=== PATIENT | female | born 1985 | race Caucasian/White ===

== ENCOUNTER 2018-11-28 09:59 | Emergency (ER) | payer BC, OTHER ==
--- NOTE | 2018-11-28 10:32 | ER Document Report ---
ED Medical Screen (RME) - General Chief Complaint: Vaginal Bleeding Stated Complaint: VAGINAL BLEEDING Time Seen by Provider: 11/28/18 10:30 Mode of Arrival: Ambulatory Information source: Patient Notes: 32-year-old female presents to ED for complaint of vaginal bleeding and cramping during . She states she is 9 weeks 6 days 4 para 2 with a blood type of B-. She states she has not had RhoGam this . Patient is alert oriented respirations regular and unlabored speaking with full sentences walks with even steady gait. I have greeted and performed a rapid initial assessment of this patient. A comprehensive ED assessment and evaluation of the patient, analysis of test results and completion of medical decision making process will be conducted by a n additional ED providers. Dictation of this chart was performed using voice recognition software; therefore, there may be some unintended grammatical errors. TRAVEL OUTSIDE OF THE [place] IN LAST 30 DAYS: No - Related Data Allergies/Adverse Reactions: No Known Allergies Allergy (Unverified 11/28/18 10:00) Physical Exam - Vital signs Vitals: Temp Pulse Resp BP Pulse Ox 98.2 F 79 16 135/77 H 100 11/28/18 10:06 11/28/18 10:06 11/28/18 10:06 11/28/18 10:06 11/28/18 10:06 Course - Vital Signs Vital signs: Temp Pulse Resp BP Pulse Ox 98.2 F 79 16 135/77 H 100 11/28/18 10:06 11/28/18 10:06 11/28/18 10:06 11/28/18 10:06 11/28/18 10:06
[2018-11-28 11:08] LABS: ABSOLUTE LYMPHOCYTES (AUTO) 1.4 10^3/uL (0.5-4.7); ABSOLUTE MONOCYTES (AUTO) 0.4 10^3/uL (0.1-1.4); BASOPHILS % (AUTO) 0.4 % (0-2); EOSINOPHILS % (AUTO) 0.5 % (0-6); HEMATOCRIT 37.4 % (36.0-47.0); HEMOGLOBIN 12.9 g/dL (12.0-15.5); LYMPHOCYTES % (AUTO) 20.9 % (13-45); MEAN CORPUSCULAR HEMOGLOBIN 27.8 pg (27.0-33.4); MEAN CORPUSCULAR HGB CONC 34.5 g/dL (32.0-36.0); MEAN CORPUSCULAR VOLUME 81 fl (80-97); MONOCYTES % (AUTO) 5.9 % (3-13); PLATELET COUNT 202 10^3/uL (150-450); RED BLOOD COUNT 4.64 10^6/uL (3.72-5.28); RED CELL DISTRIBUTION WIDTH 12.8 % (11.5-14.0); SEGMENTED NEUTROPHILS % (AUTO) 72.3 % (42-78); TOTAL CELLS COUNTED % (AUTO) 100 %; WHITE BLOOD COUNT 6.9 10^3/uL (4.0-10.5)
[2018-11-28 11:20] LABS: APPEARANCE,URINE CLOUDY; BILIRUBIN,URINE NEGATIVE (NEGATIVE); COLOR,URINE YELLOW; GLUCOSE, URINE NEGATIVE (NEGATIVE); KETONES,URINE NEGATIVE (NEGATIVE); LEUKOCYTE ESTERASE,URINE MODERATE (NEGATIVE); NITRITE,URINE NEGATIVE (NEGATIVE); PROTEIN,URINE NEGATIVE (NEGATIVE); URINE SPECIFIC GRAVITY 1.015; UROBILINOGEN,URINE NEGATIVE mg/dL (<2.0)
[2018-11-28 11:28] LABS: ALANINE AMINOTRANSFERASE 23 U/L (9-52); ALBUMIN 4.5 g/dL (3.5-5.0); ALKALINE PHOSPHATASE 31 U/L (38-126); ANION GAP 8 (5-19); ASPARTATE AMINO TRANSFERASE 19 U/L (14-36); BILIRUBIN,DIRECT 0.2 mg/dL (0.0-0.4); BILIRUBIN,TOTAL 0.3 mg/dL (0.2-1.3); BLOOD UREA NITROGEN 13 mg/dL (7-20); CALCIUM 9.6 mg/dL (8.4-10.2); CARBON DIOXIDE 26 mmol/L (22-30); CHLORIDE 102 mmol/L (98-107); GLUCOSE 73 mg/dL (75-110); POTASSIUM 4.1 mmol/L (3.6-5.0); TOTAL PROTEIN 7.2 g/dL (6.3-8.2)
--- NOTE | 2018-11-28 11:46 | ER Document Report ---
ED General - General Chief Complaint: Vaginal Bleeding Stated Complaint: VAGINAL BLEEDING Time Seen by Provider: 11/28/18 10:30 Mode of Arrival: Ambulatory Notes: 33-year-old G4, P2 9 weeks 6-day female LMP 09/20/2018 presents to the emergency department with chief complaint of cramping and bleeding since 1:00 this morning. She woke up to go to the bathroom and noticed that she has some spotting then went back to bed. About 6 AM she noticed that there was some brown discharge. At 8 AM she noticed spotting. She also has pelvic cramping. She denies fevers or chills, she denies shortness of breath or chest pain, denies nausea or vomiting, denies upper abdominal pain, denies any urinary symptoms. Her blood type is B-. TRAVEL OUTSIDE OF THE [place] IN LAST 30 DAYS: No - Related Data Allergies/Adverse Reactions: No Known Allergies Allergy (Unverified 11/28/18 10:41) Past Medical History - General Information source: Patient Last Menstrual Period: 09/20/2018 - Social History Smoking Status: Never Smoker Chew tobacco use (# tins/day): No Frequency of alcohol use: None Drug Abuse: None Family History: None Patient has suicidal ideation: No Patient has homicidal ideation: No Renal/ Medical History: Denies: Hx Peritoneal Dialysis Review of Systems - Review of Systems Constitutional: See HPI EENT: No symptoms reported Cardiovascular: See HPI Respiratory: See HPI Gastrointestinal: See HPI Genitourinary: See HPI Female Genitourinary: See HPI Musculoskeletal: No symptoms reported Skin: No symptoms reported Hematologic/Lymphatic: No symptoms reported Neurological/Psychological: No symptoms reported Physical Exam - Vital signs Vitals: Temp Pulse Resp BP Pulse Ox 98.2 F 79 16 135/77 H 100 11/28/18 10:06 11/28/18 10:06 11/28/18 10:06 11/28/18 10:06 11/28/18 10:06 - Notes Notes: PHYSICAL EXAMINATION: Reviewed vital signs and charting by RN GENERAL: Alert, interacts well. No acute distress. HEAD: Normocephalic, atraumatic. EYES: Pupils equal and round. Extraocular movements intact. ENT: Oral mucosa moist, tongue midline. NECK: Full range of motion. Trachea midline. LUNGS: Clear to auscultation bilaterally, no wheezes, rales, or rhonchi. No respiratory distress. HEART: Regular rate and rhythm. No murmur ABDOMEN: soft, mild tenderness to palpation left lower quadrant. No distention. Bowel sounds present EXTREMITIES: Moves all 4 extremities spontaneously. No edema, No cyanosis. PSYCH: Normal affect, normal mood. SKIN: Warm, dry, normal turgor. No rashes or lesions noted. Course - Re-evaluation Re-evalutation: 11/28/18 11:45 Overall well-appearing. Afebrile, urinalysis consistent with a UTI. Transvaginal ultrasound pending. We will give patient Keflex 500 mg here in the emergency department. 11/28/18 14:14 Transvaginal ultrasound showed a live intrauterine with a subchorionic bleed. I have explained to patient the risks associated with a subchorionic bleed. I have given her strict return precautions and she is stable for discharge. Vital signs within normal limits. - Vital Signs Vital signs: Temp Pulse Resp BP Pulse Ox 98.2 F 79 16 135/77 H 100 11/28/18 10:06 11/28/18 10:06 11/28/18 10:06 11/28/18 10:06 11/28/18 10:06 - Laboratory Result Diagrams: 11/28/18 10:54 11/28/18 10:54 Laboratory results interpreted by me: 11/28/18 11/28/18 10:54 10:54 Sodium 136.0 L Glucose 73 L Alkaline Phosphatase 31 L Beta HCG, Quant 147277.00 H Urine Blood LARGE H Ur Leukocyte Esterase MODERATE H Discharge - Discharge Clinical Impression: Bleeding in early Urinary tract infection Qualifiers: Urinary tract infection type: acute cystitis Hematuria presence: with hematuria Qualified Code(s): N30.01 - Acute cystitis with hematuria Condition: Good Disposition: HOME, SELF-CARE Instructions: Urinary Tract Infection ([facility]) Additional Instructions: Your ultrasound today shows a living intrauterine . Please follow closely with your primary care PARAPROFESSIONAL AIDE TEACHER. Please return if you develop severe abdominal pain, bleeding that goes through more than 2 pads for more than 2 hours, pass out, or have any other symptoms that are concerning to you. Please follow-up closely with your OBGYN regarding todays visit. Your urine shows findings consistent with a urinary tract infection. Please take all the antibiotics as directed even if your symptoms have improved. Please follow-up with your primary care physician as needed. Return to emergency room if you develop fever >101F, persistent vomiting, become lethargic , have severe pain in your sides, or any other symptoms that are concerning to you.
--- NOTE | 2018-11-28 14:05 | RADIOLOGY REPORT (SQ) ---
EXAM DESCRIPTION: U/S OB TRANSVAG W/DOPPLER COMPLETED DATE/TIME: 11/28/2018 1:56 pm REASON FOR STUDY: preg 9 weeks 6 days vaginal bleeding cramping COMPARISON: None. TECHNIQUE: Transvaginal static and realtime grayscale images acquired of the pelvis. Additional madeline cted spectral and color Doppler images recorded. All images stored on PACs. [id number] CLINICAL DATES: LMP 09/20/2018. 9 weeks 6 days. LIMITATIONS: None. FINDINGS: FETUS: Single Living intrauterine . ULTRASOUND EGA: 9 weeks 5 days ULTRASOUND ABBY: 06/28/2019 EFW: Not applicable less than 20 weeks. CRL: 2.9 cm. FHR: 162 beats per minute. SURVEY: No visualized anomalies. AMNIOTIC FLUID: Adequate amount. PLACENTA: Not yet developed due to early gestation. SUBCHORIONIC BLEED: Yes SIZE OF BLEED: 2 x 1.7 x 0.4 cm. 0.9 x 1.1 x 0.8 cm. UTERUS: No masses. No anomalies. CERVICAL LENGTH: 3 cm. Closed. RIGHT ADNEXA: Normal ovary with normal vascular flow. 2.7 x 2.2 x 1.6 cm. No adnexal free fluid. No adnexal masses. LEFT ADNEXA: Normal ovary with normal vascular flow. 4.2 x 2.6 x 2.4 cm. No adnexal free fluid. No adnexal masses. FREE FLUID: None. OTHER: No other significant finding. IMPRESSION: LIVING INTRAUTERINE . EGA 9 weeks 5 days. Trimester of : First - 0 to 13 weeks. TECHNICAL DOCUMENTATION: JOB ID: [id number]- All Rights Reserved rev-10/12 Reading location - IP/workstation name: [email or web address]
[2018-11-28 14:44] VITALS: BP 104/69
== END 2018-11-28 14:45 | disposition home or self-care (01) ==
LOC: ER 09:59
DX: O20.9 Hemorrhage in early pregnancy, unspecified (principal); O23.11 Infections of bladder in pregnancy, first trimester; Z3A.09 9 weeks gestation of pregnancy
CPT/HCPCS: 99284; 86900; 86901; 36415; 86850; 84702; 85025; 80053; 81001; 76817; 93976; J2790

== ENCOUNTER 2019-06-28 04:03 | Inpatient (IN) | payer BC, OTHER ==
[2019-06-28] MEDS ORDERED: OXYTOCIN/NORMAL SALINE 0 UNIT/0 ML RTUINJ ONE (04:20)
[2019-06-28] MEDS ORDERED: MISOPROSTOL 0.2 MG TABLET ONE ×2 (04:20→04:22)
[2019-06-28] MEDS ORDERED: OXYTOCIN 10 UNIT/ML VIAL ONE ×2 (04:20→04:22)
[2019-06-28] MEDS ORDERED: LIDOCAINE 1% INJ-PF (10 MG/ML) 30 ML SDV ONE ×2 (04:20→04:22)
[2019-06-28] MEDS ORDERED: OXYTOCIN/NORMAL SALINE 20 UNIT/1,000 ML RTUINJ ONE (04:22)
[2019-06-28 05:24] LABS: ABSOLUTE LYMPHOCYTES (AUTO) 1.8 10^3/uL (0.5-4.7); ABSOLUTE MONOCYTES (AUTO) 0.8 10^3/uL (0.1-1.4); ABSOLUTE NEUT (AUTO) 8.5 10^3/uL (1.7-8.2); BASOPHILS % (AUTO) 0.2 % (0-2); EOSINOPHILS % (AUTO) 0.4 % (0-6); HEMATOCRIT 37.9 % (36.0-47.0); MEAN CORPUSCULAR HEMOGLOBIN 29.4 pg (27.0-33.4); MEAN CORPUSCULAR HGB CONC 34.3 g/dL (32.0-36.0); MEAN CORPUSCULAR VOLUME 86 fl (80-97); MONOCYTES % (AUTO) 6.9 % (3-13); PLATELET COUNT 179 10^3/uL (150-450); RED BLOOD COUNT 4.43 10^6/uL (3.72-5.28); RED CELL DISTRIBUTION WIDTH 14.2 % (11.5-14.0); SEGMENTED NEUTROPHILS % (AUTO) 76.5 % (42-78); TOTAL CELLS COUNTED % (AUTO) 100 %; WHITE BLOOD COUNT 11.1 10^3/uL (4.0-10.5)
[2019-06-28] MEDS: RINGERS SOLUTION,LACTATED 1,000 ML IV PRN ×2 (05:40→05:41)
[2019-06-28] MEDS ORDERED: PHENYLEPHRINE HCL INJ/PF 10 MG/1 ML SDV ONE (05:42)
[2019-06-28] MEDS ORDERED: BUPIVACAINE HCL 0.25 % INJ/PF (2.5 MG/1 ML) 30 ML VIAL ONE (05:43)
[2019-06-28] MEDS ORDERED: FENTANYL/BUPIVACAINE/NS/PF 300 MCG/150 ML RTUINJ EPI ONE (05:43)
[2019-06-28] MEDS ORDERED: EPHEDRINE SULFATE INJ 50 MG/1 ML AMPULE ONE (05:43)
[2019-06-28] MEDS ORDERED: FENTANYL CITRATE INJ/PF 100 MCG/2 ML AMPUL ONE (05:43)
--- NOTE | 2019-06-28 06:23 | Admission Physical ---
Datetime Report Generated by CPN: 06/28/2019 06:22 CURRENT ADMISSION Chief Complaint: Uterine Contractions Indication for Induction: Not Applicable Admit Impression : Term, Intrauterine ; Active Labor Admit Plan: Admit to Unit; Initiate Labor Protocol ALLERGIES Medication Allergies: No Medication Allergies: No Known Allergies (06/28/2019) Latex: Latex Allergies OBSTETRICAL HISTORY EDC: 06/27/2019 00:00 : 4 Para: 2 Term: 2 : 0 SAB: 1 IAB: 0 Ectopic: 0 Livin Cesareans: 0 VBACs: 0 Multiple Births: 0 Gestational Diabetes: No Rh Sensitization: No Incompetent Cervix: No STACI: No Infertility: No ART Treatment: No Uterine Anomaly: No IUGR: No Hx Previous C/S: No Macrosomia: No Hx Loss/Stillborn: No PIH: No Hx : No Placenta Previa/Abruption: No Depression/PP Depression: No PTL/PROM: No Post Hemorrhage: No Current Procedures: Ultrasound; NST Obstetrical History Comments: G1: SAB less than 6 weeks G2: 06/03/2014 40 + weeks 9 lbs 1 oz M G3: 12.23.2015 40 weeks M 8 lbs 2 oz G4: current SEE RECORDS Alcohol: No Marijuana : No Cocaine: No Other Illicit Drugs: No Cigarettes: Never Smoker. [id number] MEDICAL HISTORY Diabetes: No Blood Transfusion: No Pulmonary Disease (Asthma, TB): No Breast Disease: No Hypertension: No Credit Risk Modeler Surgery: No Heart Disease: No Hosp/Surgery: Yes Autoimmune Disorder: No Anesthetic Complications: No Kidney Disease: No Abnormal Pap Smear: No Neuro/Epilepsy: No Psychiatric Disorders: No Other Medical Diseases: No Hepatitis/Liver Disease: No Significant Family History: No Varicosities/Phlebitis: No Trauma/Violence : No Thyroid Dysfunction: No Medical History Comments: childbirth x 2 INFECTIOUS HISTORY Gonorrhea: No Genital Herpes: Yes Chlamydia: No Tuberculosis: No Syphilis: No Hepatitis: No HIV/AIDS Exposure: No Rash or Viral Illness: No HPV: No Infectious History Comments: HSV- valtrex PHYSICAL EXAM General: Normal HEENT: Normal Neurologic: Normal Thyroid: Normal Heart: Normal Lungs: Normal Breast: Deferred Back: Normal Abdomen: Normal Genitourinary Exam: Normal Extremities: Normal DTRs: Normal Pelvic Type: Adequate Vital Signs: Reviewed VAGINAL EXAM Dilatation: 8 Effacement: 90 Station: 1 MEMBRANES Pooling: Negative Membranes: Intact FETUS A EGA: 40.1 Monitoring: External US FHR- Baseline: 120 Variability: Moderate 6-25bpm Accelerations: 15X15 FHR Category: Category I Presentation: Vertex Admit Comment: admit for labor PLANS FOR LABOR AND DELIVERY Labor and Delivery: None Pain Management: Epidural Feeding Preference: Breast Benefit of Breast Feed Discussed: Yes Circumcision: N/A INFORMED CONSENT Signature: with User ID: [email or web address]
[2019-06-28 06:44] LABS: APPEARANCE,URINE SLIGHTLY-CLOUDY; BILIRUBIN,URINE NEGATIVE (NEGATIVE); COLOR,URINE YELLOW; GLUCOSE, URINE NEGATIVE (NEGATIVE); KETONES,URINE NEGATIVE (NEGATIVE); LEUKOCYTE ESTERASE,URINE MODERATE (NEGATIVE); NITRITE,URINE NEGATIVE (NEGATIVE); PROTEIN,URINE NEGATIVE (NEGATIVE); URINE SPECIFIC GRAVITY 1.015; UROBILINOGEN,URINE NEGATIVE mg/dL (<2.0)
[2019-06-28 07:09] LABS: URINE AMPHETAMINES SCREEN NEGATIVE; URINE BARBITURATES SCREEN NEGATIVE; URINE BENZODIAZEPINES SCREEN NEGATIVE; URINE COCAINE SCREEN NEGATIVE; URINE MARIJUANA (THC) SCREEN NEGATIVE; URINE METHADONE SCREEN NEGATIVE; URINE PHENCYCLIDINE SCREEN NEGATIVE
--- NOTE | 2019-06-28 07:44 | Warning Signs in Babies ---
VOD Warning Signs Datetime Report Generated by [facility]: 06/28/2019 07:43 VOD#608 -Warning Signs in Babies: Viewed with Parent(s)/Family (06/28/2019 07:42:Kinjal Liu RN)
[2019-06-28] MEDS ORDERED: MEASLES,MUMPS&RUBELLA VACC/PF 0.5 ML VIAL SUBCUT PRN (11:44)
[2019-06-28] MEDS ORDERED: BENZOCAINE/MENTHOL AEROSOL SPRAY 56 ML TOP PRN (11:44)
[2019-06-28] MEDS ORDERED: DIBUCAINE 1% OINTMENT 28 GM TP PRN (11:44)
[2019-06-28] MEDS ORDERED: ACETAMINOPHEN WITH CODEINE #3 TABLET PO PRN ×2 (11:44)
[2019-06-28] MEDS ORDERED: DIPH/PERTUSS(ACELL)/TETANUS VAC/PF 0.5 ML SYR (>=10YO) IM PRN (11:44)
[2019-06-28] MEDS ORDERED: ZOLPIDEM TARTRATE 5 MG TABLET PO PRN (11:44)
[2019-06-28] MEDS ORDERED: OXYTOCIN/NORMAL SALINE 20 UNIT/1,000 ML RTUINJ IV PRN (11:44)
[2019-06-28] MEDS: IBUPROFEN 800 MG TABLET PO SCH ×2 (14:06→20:59)
--- NOTE | 2019-06-28 14:13 | Delivery Summary ---
Del Sum A-C Datetime Report Generated by CPN: 06/28/2019 14:12 DELIVERY PERSONNEL DELIVERY PERSONNEL: [id number] Delivery Doctor:: Lexie Golden MD Labor and Delivery Nurse:: Braeden Frederick RNelectronics technician apprentice Nurse:: Kinjal Liu RN Finisher Hot Strip/TEA ROOM MANAGER: Debbie Von Yeaddiss, DAM ATTENDANT Finisher Hot Strip/TEA ROOM MANAGER: Nay Navarro, DAM ATTENDANT MATERNAL INFORMATION Delivery Anesthesia: Epidural Medications After Delivery: Pitocin Bolus-Please Comment Meds After Delivery Comment: pitocin 20 units in NS 1000 ml bolus Estimated Blood Loss (ml): 300 Delivery QBL: 100 Maternal Complications: None Complication Details: none Provider Comments: Called to patients room as she was completely dilated and +2 station. PUshed through one contraction and delivered viable female infant. After delivery of the head, the shoulders and rest of body followed easily. Cord clamping delayed 30 seconds as infant was vigorous. After doubly clamping cord, placed skin to skin with Mother. Both stable condition. LABOR SUMMARY EDC: 06/27/2019 00:00 No. Babies in Womb: 1 Attempted: No Labor Anesthesia: Epidural LABOR INFORMATION Reason for Induction: Not Applicable Onset of Labor: 06/28/2019 01:00 Complete Dilatation: 06/28/2019 11:19 Other Ripening Agents: none Oxytocin: N/A Group B Beta Strep: negative Antibiotics # of Doses: 0 Steroids Given: None Reason Steroids Not Administered: Not Applicable MEMBRANES Membranes Rupture Method: Spontaneous Rupture of Membranes: 06/28/2019 08:48 Length of Rupture (hr): 2.67 Amniotic Fluid Color: Clear Amniotic Fluid Amount: Scant Amniotic Fluid Odor: None STAGES OF LABOR Stage 1 hr: 10 Stage 1 min: 19 Stage 2 hr: 0 Stage 2 min: 9 Stage 3 hr: 0 Stage 3 min: 4 Total Time in Labor hr: 10 Total Time in Labor min: 32 VAGINAL DELIVERY Episiotomy: None Laceration #1: Perineal Laceration Extension #1: Second Degree Laceration Repair: Yes Laceration Repair Note: Repaired in layered closure with 2-0 chromic Sponge Count Correct: Yes Sharps Count Correct: Yes CSECTION DELIVERY Primary Indication: N/A Secondary Indication: N/A CSection Incidence: N/A Labor: N/A Elective: N/A CSection Incision: N/A BABY A INFORMATION Infant Delivery Date/Time: 06/28/2019 11:28 Method of Delivery: Vaginal Born in Route : No : N/A Forceps: N/A Vacuum Extraction: N/A Shoulder Dystocia : No PRESENTATION/POSITION BABY A Presentation: Cephalic Cephalic Presentation: Vertex Vertex Position: Right Occipital Anterior Breech Presentation: N/A PLACENTA INFORMATION BABY A Placenta Delivery Time : 06/28/2019 11:32 Placenta Method of Delivery: Spontaneous Placenta Status: Delivered SCORES BABY A Heart Rate 1 min: >100 bpm Resp Effort 1 min: Good Cry Reflex Irritability 1 min: Cough or Sneeze or Pulls Away Muscle Tone 1 min: Active Motion Color 1 min: Body [place], Extremities Blue Resuscitation Effort 1 min: Tactile Stimulation SCORE 1 MIN: 9 Heart Rate 5 min: >100 bpm Resp Effort 5 min: Good Cry Reflex Irritability 5 min: Cough or Sneeze or Pulls Away Muscle Tone 5 min: Active Motion Color 5 min: Body [place], Extremities Blue SCORE 5 MIN: 9 INFORMATION BABY A Gestational Age at Delivery: 40.1 Gestational Status: Full Term- 39- 40.6 Weeks Outcome : Liveborn Infant Condition : Stable Sex: Female IDENTIFICATION BABY A Infant Verification Date/Time: 06/28/2019 11:50 ID Band Number: [id number] Mother's Name Verified: Yes RN Verifying : TMartin RN, MMobley RN WEIGHT/LENGTH BABY A Infant Birthweight (gm): 4000 Weight (lb): 8 Infant Weight (oz): 13 Infant Length (in): 20.25 Infant Length (cm): 51.44 CORD INFORMATION BABY A No. Cord Vessels: 3 Nuchal Cord : N/A Cord Blood Taken: Yes-For Eval (Mom's Blood Type - or O+) Suction: Mouth ASSESSMENT BABY A Infant Respirations: Appears Normal Skin to Skin: Yes Skin to Skin Time (min): 60 Transferred To: [facility] BABY B INFORMATION : N/A SIGNATURES Signature: with User ID: Maria Isabel : with User ID: Maria Isabel
[2019-06-28] MEDS: DOCUSATE SODIUM 100 MG CAPSULE PO SCH (17:32)
[2019-06-28] MEDS: FERROUS SULFATE 325 MG TABLET PO SCH (17:32)
[2019-06-29] MEDS: IBUPROFEN 800 MG TABLET PO SCH ×2 (05:41→13:05)
[2019-06-29 07:36] LABS: HEMATOCRIT 34.7 % (36.0-47.0); HEMOGLOBIN 11.9 g/dL (12.0-15.5); MEAN CORPUSCULAR HEMOGLOBIN 29.3 pg (27.0-33.4); MEAN CORPUSCULAR HGB CONC 34.2 g/dL (32.0-36.0); MEAN CORPUSCULAR VOLUME 86 fl (80-97); PLATELET COUNT 160 10^3/uL (150-450); RED BLOOD COUNT 4.05 10^6/uL (3.72-5.28); RED CELL DISTRIBUTION WIDTH 14.7 % (11.5-14.0); WHITE BLOOD COUNT 12.2 10^3/uL (4.0-10.5)
[2019-06-29 07:41] VITALS: BP 120/71
[2019-06-29] MEDS: DOCUSATE SODIUM 100 MG CAPSULE PO SCH ×2 (09:09→17:15)
[2019-06-29] MEDS: FERROUS SULFATE 325 MG TABLET PO SCH ×2 (09:09→17:15)
--- NOTE | 2019-06-29 09:36 | PDOC PROGRESS REPORT ---
Subjective-OB Progress Note for:: 06/29/19 Subjective: Doing well, , voiding, desires to go home today, will talk to Peds Physical Exam (OB) Vital Signs: Temp Pulse Resp BP Pulse Ox 98.2 F 62 18 120/71 98 06/29/19 07:37 06/29/19 07:37 06/29/19 07:37 06/29/19 07:37 06/29/19 07:37 Intake & Output 06/28/19 06/29/19 06/30/19 06:59 06:59 06:59 Intake Total 2 1450 Balance 2 1450 Weight 96.1 kg - PIH/Pre-Eclampsia Clonus: Negative Headache: Absent Epigastric Pain: No Visual Changes: No - Lochia Lochia Amount: Scant < 10 ml Lochia Color: Rubra/Red - Abdomen Description: Soft, Round Hernia Present: No Fundal Description: Firm, Midline Fundal Height: u/u - u/2 Objective-Diagnostic Laboratory: 06/29/19 07:02 06/29/19 07:02 WBC 12.2 H RBC 4.05 Hgb 11.9 L Hct 34.7 L MCV 86 MCH 29.3 MCHC 34.2 RDW 14.7 H Plt Count 160 Assessment and Plan(PN) - Assessment and Plan (1) Delivery normal Is this a current diagnosis for this admission?: Yes - Time Spent with Patient Time with patient: Less than 15 minutes Medications reviewed and adjusted accordingly: Yes - Disposition Anticipated Discharge: Home Within: within 24 hours
[2019-06-29] MEDS ORDERED: PRENATAL VITAMIN W DHA CAPSULE PO SCH (10:00)
[2019-06-29] MEDS ORDERED: VALACYCLOVIR HCL 500 MG TABLET PO SCH (10:00)
[2019-06-29] MEDS ORDERED: SENNOSIDES/DOCUSATE 8.6-50 MG 1 EACH TABLET PO SCH (10:00)
--- NOTE | 2019-06-30 08:53 | PDOC PROGRESS REPORT ---
Subjective-OB Progress Note for:: 06/29/19 Subjective: baby going home so she wants to go also, we had talked about it earlier in the day Physical Exam (OB) Vital Signs: Temp Pulse Resp BP Pulse Ox 98.2 F 62 18 120/71 98 06/29/19 17:31 06/29/19 17:31 06/29/19 17:31 06/29/19 07:37 06/29/19 17:31 Intake & Output 06/29/19 06/30/19 07/01/19 06:59 06:59 06:59 Intake Total 1450 Balance 1450 - PIH/Pre-Eclampsia DTR's: 1 + Clonus: Negative Headache: Absent Epigastric Pain: No Visual Changes: No - Lochia Lochia Amount: Small 10-25 ml Lochia Color: Rubra/Red - Abdomen Description: Soft, Round Hernia Present: No Fundal Description: Firm, Midline Fundal Height: u/u - u/2 Objective-Diagnostic Laboratory: 06/29/19 07:02 Assessment and Plan(PN) - Assessment and Plan (1) Delivery normal Is this a current diagnosis for this admission?: Yes - Time Spent with Patient Time with patient: Less than 15 minutes Medications reviewed and adjusted accordingly: Yes - Disposition Anticipated Discharge: Home Within: within 24 hours - home today with baby
--- NOTE | 2019-06-30 08:56 | PDOC DISCHARGE SUMMARY ---
Impression - Admit/DC Date/PCP Admission Date/Primary Care Provider: 06/28/19 04:20 SEBAS MONTES MD Discharge Date: 06/30/19 - Discharge Diagnosis (1) Delivery normal Is this a current diagnosis for this admission?: Yes - Additional Information Discharge Diet: As Tolerated, Regular Discharge Activity: Activity As Tolerated, Balance Activity w/Rest, No Lifting Over 10 Pounds, No Lifting/Push/Pulling, Pelvic Rest Referrals: [facility] [Provider Group] (Call for follow-up appointment in 4 weeks) Home Medications: Vitamin [-U Multiple Vitamin Capsule] 1 tab PO DAILY 06/28/19 Valacyclovir HCl [Valtrex 500 mg Tablet] 1 tab PO DAILY 06/28/19 HPI Gestational Age: 40.1 Reason(s) for Admission: Onset of Labor Procedures: Ultrasound Intrapartum Procedure(s): Spontaneous Vaginal Delivery Complication(s): Laceration-Perineal Laceration-Degree: 2nd Hospital Course Hospital Course: routine Results Laboratory Results: WBC 12.2 10^3/uL (4.0-10.5) H 06/29/19 07:02 RBC 4.05 10^6/uL (3.72-5.28) 06/29/19 07:02 Hgb 11.9 g/dL (12.0-15.5) L 06/29/19 07:02 Hct 34.7 % (36.0-47.0) L 06/29/19 07:02 MCV 86 fl (80-97) 06/29/19 07:02 MCH 29.3 pg (27.0-33.4) 06/29/19 07:02 MCHC 34.2 g/dL (32.0-36.0) 06/29/19 07:02 RDW 14.7 % (11.5-14.0) H 06/29/19 07:02 Plt Count 160 10^3/uL (150-450) 06/29/19 07:02 Lymph % (Auto) 16.0 % (13-45) 06/28/19 04:37 [place] % (Auto) 6.9 % (3-13) 06/28/19 04:37 Eos % (Auto) 0.4 % (0-6) 06/28/19 04:37 Baso % (Auto) 0.2 % (0-2) 06/28/19 04:37 Absolute Neuts (auto) 8.5 10^3/uL (1.7-8.2) H 06/28/19 04:37 Absolute Lymphs (auto) 1.8 10^3/uL (0.5-4.7) 06/28/19 04:37 Absolute Monos (auto) 0.8 10^3/uL (0.1-1.4) 06/28/19 04:37 Absolute Eos (auto) 0.0 10^3/uL (0.0-0.6) 06/28/19 04:37 Absolute Basos (auto) 0.0 10^3/uL (0.0-0.2) 06/28/19 04:37 Seg Neutrophils % 76.5 % (42-78) 06/28/19 04:37 Urine Color YELLOW 06/28/19 04:40 Urine Appearance SLIGHTLY-CLOUDY 06/28/19 04:40 Urine pH 7.0 (5.0-9.0) 06/28/19 04:40 Ur Specific [place] 1.015 06/28/19 04:40 Urine Protein NEGATIVE mg/dL (NEGATIVE) 06/28/19 04:40 Urine Glucose (UA) NEGATIVE mg/dL (NEGATIVE) 06/28/19 04:40 Urine Ketones NEGATIVE mg/dL (NEGATIVE) 06/28/19 04:40 Urine Blood LARGE (NEGATIVE) H 06/28/19 04:40 Urine Nitrite NEGATIVE (NEGATIVE) 06/28/19 04:40 Urine Bilirubin NEGATIVE (NEGATIVE) 06/28/19 04:40 Urine Urobilinogen NEGATIVE mg/dL (<2.0) 06/28/19 04:40 Ur Leukocyte Esterase MODERATE (NEGATIVE) H 06/28/19 04:40 Urine Ascorbic Acid NEGATIVE (NEGATIVE) 06/28/19 04:40 Urine Opiates Screen NEGATIVE 06/28/19 04:40 Urine Methadone Screen NEGATIVE 06/28/19 04:40 Ur Barbiturates Screen NEGATIVE 06/28/19 04:40 Ur Phencyclidine Scrn NEGATIVE 06/28/19 04:40 Ur Amphetamines Screen NEGATIVE 06/28/19 04:40 U Benzodiazepines Scrn NEGATIVE 06/28/19 04:40 Urine Cocaine Screen NEGATIVE 06/28/19 04:40 U Marijuana (THC) Screen NEGATIVE 06/28/19 04:40 RPR NONREACTIVE (NONREACTIVE) 06/28/19 04:37 Blood Type B NEGATIVE 06/28/19 04:37 Antibody Screen POSITIVE 06/28/19 04:37 Antibody Identification RHOGAM INDUCED ANTI-D 06/28/19 04:37 Plan Health Concerns: routine pp Plan of Treatment: rev S&S to report, Goals: no complications Time Spent: Less than 30 Minutes
== END 2019-06-29 18:34 | disposition home or self-care (01) | DRG 806 ==
LOC: LC 04:03 → LR 04:20 → 2S 13:47
PROVIDERS: ADMIT Obstetrics & Gynecology; ATTEND Obstetrics & Gynecology
PROC: 10E0XZZ Delivery of Products of Conception, External Approach (ICD-10-PCS; principal; 2019-06-28)
PROC: 0KQM0ZZ Repair Perineum Muscle, Open Approach (ICD-10-PCS; 2019-06-28)
DX: O26.893 Other specified pregnancy related conditions, third trimester (principal); O98.52 Other viral diseases complicating childbirth; Z37.0 Single live birth; O70.1 Second degree perineal laceration during delivery; Z67.21 Type B blood, Rh negative; Z3A.40 40 weeks gestation of pregnancy; B00.9 Herpesviral infection, unspecified
CPT/HCPCS: 36415; 80307; 81005; 85025; 85027; 86592; 86850; 86870; 86900; 86901; 94760; J2370; J2590; J3010; J3490